=== PATIENT | male | born 1940 | race Caucasian/White ===

== ENCOUNTER → 2019-05-20 | Outpatient (REF) | payer OTHER ==
[~2019-05-20] MED LIST: ALLO10TA PO; AMLO25TA PO; ASPI81TA26 PO; CENTTAB47 PO; CRES10TA PO; FLOM0.4C39 PO; FURO40TA2 PO; LUTE20TA PO; OMEP20CA4 PO; PRAD150C6 PO; TOPR25TA PO; VICO5TAB17 PO; VITACAP9 PO
== END ==
LOC: M LAB LCGH 12:05
PROVIDERS: ATTEND Surgery
DX: K62.5 Hemorrhage of anus and rectum (principal)